=== PATIENT | male | born 2000 | race Caucasian/White ===

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

== ENCOUNTER 2022-03-18 09:41 | Emergency (ER) | payer MEDICAID ==
[~2022-03-18] VITALS: Ht 160 cm; Wt 61.8 kg
--- NOTE | 2022-03-18 11:51 | NUR ---
PT IS COVID NEGATIVE AND EXCOTED TO OF.
--- NOTE | 2022-03-18 11:53 | NUR ---
Pt moved from ER main bed 16 to ER overflow bed 20, ambulated onto unit accompanied by tech.
[2022-03-18 11:56] LABS: BASOPHILS % (AUTO) 0.5 % (0-1); EOSINOPHILS # (AUTO) 0.1 X10'3 (0-0.9); EOSINOPHILS % (AUTO) 1.2 % (0-6); HEMATOCRIT 47.7 % (42.0-52.0); HEMOGLOBIN 16.4 g/dl (14.0-17.9); LYMPHOCYTES # (AUTO) 1.4 X10'3 (1.1-4.8); LYMPHOCYTES % (AUTO) 23.6 % (21-51); MEAN CORPUSCULAR HEMOGLOBIN 30.2 PG (27.0-31.0); MEAN CORPUSCULAR HGB CONC 34.4 g/dL (33.0-36.5); MEAN CORPUSCULAR VOLUME 87.8 FL (78-98); MEAN PLATELET VOLUME 7.5 FL (7.4-10.4); MONOCYTES # (AUTO) 0.9 X10'3 (0-0.9); MONOCYTES % (AUTO) 14.7 % (2-12); NEUTROPHILS # (AUTO) 3.5 X10'3 (1.8-7.7); PLATELET COUNT 316 X10'3 (140-440); RED BLOOD COUNT 5.43 X10'6 (4.70-6.10); RED CELL DISTRIBUTION WIDTH 13.6 % (11.5-14.5); WHITE BLOOD COUNT 5.9 X10'3 (4.5-11.0)
[2022-03-18 12:17] LABS: ALANINE AMINOTRANSFERASE 41 U/L (12-78); ALBUMIN 4.5 G/DL (3.4-5.0); ALBUMIN/GLOBULIN RATIO 1.1 (1.1-1.5); ALKALINE PHOSPHATASE 60 IU/L (46-116); ANION GAP 10 (8-16); ASPARTATE AMINO TRANSFERASE 27 U/L (10-37); BILIRUBIN,TOTAL 0.5 MG/DL (0.1-1.0); BLOOD UREA NITROGEN 14 MG/DL (7-18); BUN/CREATININE RATIO 15.6 (5.4-32.0); CALCIUM 9.6 MG/DL (8.5-10.1); CHLORIDE 97 MMOL/L (99-107); GLUCOSE 88 MG/DL (70-104); SODIUM 136 MMOL/L (135-145); TOTAL CARBON DIOXIDE 29.2 MMOL/L (24-32); TOTAL PROTEIN 8.7 G/DL (6.4-8.2); eGFR > 90 ML/MIN
[2022-03-18 12:18] LABS: ACETAMINOPHEN < 2.0 UG/ML (10-30); ETHANOL < 0.010 GM/DL (0.0-0.010)
[2022-03-18] MEDS ORDERED: CELE-85 PO (12:39)
--- NOTE | 2022-03-18 12:56 | NUR ---
Clean catch UA collected and sent. POM Celecoxib sent to pharmacy.
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
--- NOTE | 2022-03-18 13:15 | NUR ---
sent primary RN on lunch break, pt. sitting up on bed in stable condition, no distress noted.
[2022-03-18 13:20] LABS: URINE AMPHETAMINE SCREEN POSITIVE (Neg); URINE BARBITUATE SCREEN NEGATIVE (Neg); URINE BENZODIAZEPINES SCREEN NEGATIVE (Neg); URINE CANNABINOID SCREEN POSITIVE (Neg); URINE COCAINE SCREEN NEGATIVE (Neg); URINE METHADONE SCREEN NEGATIVE (Neg); URINE OPIATE SCREEN NEGATIVE (Neg); URINE PHENCYCLIDINE SCREEN NEGATIVE (Neg)
--- NOTE | 2022-03-18 13:30 | NUR ---
Patient's packet faxed to [facility].
[2022-03-18 14:29] LABS: CLARITY,URINE SLIGHTLY CLOUDY (Clear); COLOR,URINE YELLOW (Yellow); GLUCOSE, URINE NEGATIVE (Neg); KETONES,URINE NEGATIVE (Neg); LEUKOCYTE ESTERASE ,URINE NEGATIVE (Neg); NITRITES, URINE NEGATIVE (Neg); OCCULT BLOOD,URINE NEGATIVE (Neg); PH,URINE 6.5 (4.8-8.0); PROTEIN,URINE TRACE mg/dl (Neg); UROBILINOGEN,URINE 0.2 E.U/dL (0.2-1.0)
[2022-03-18 14:31] LABS: UA COLLECTION TYPE CLN CATCH MIDSTREAM
[2022-03-18 14:34] LABS: BACTERIA,URINE FEW /HPF (Neg); MUCUS STRANDS MANY /LPF (Neg); RBC,URINE NONE SEEN /HPF (0-2); SQUAMOUS EPITHELIAL CELL,UR FEW /LPF (FEW); WBC,URINE 0-4 /HPF (0-4)
[2022-03-18 14:35] LABS: FINE GRANULAR CAST 0-3 /LPF (NEGATIVE)
--- NOTE | 2022-03-18 14:43 | NUR ---
Pt appears restless, shifting position frequently, holding his head in his hands, hanging his head and upper body off of the bed. Offered to get an order for a prn medication, pt declined. Offered pt reading, writing, or coloring material. Pt declined. Offered TV, pt declined. Addendum: 03/18/22 at 1445 by HEIDY Asked pt if there was anything this RN could do or get to help him relax. Pt shook his head "no." Addendum: 03/18/22 at 1501 by HEIDY Lowered pt's bed and HOB, encouraged him to lie down correctly in the bed with his head on his pillow.
--- NOTE | 2022-03-18 15:56 | NUR ---
Note marino in ED - 03/18/22 at 1607 by HEIDY Asked [facility] workers if they were going to evaluate the patient, they reported he was not on their board. Called [facility] office to ask if they received his packet. [facility] office reported that they only received 4 pages of labs. Packet was faxed to [facility] office [phone]. Refaxed entire packet. [facility] workers are leaving for a meeting but someone will be back later.
--- NOTE | 2022-03-18 15:56 | NUR ---
Asked [facility] workers present in the office if they were going to evaluate the patient, they reported he was not on their board. Called [facility] office to ask if they received his packet. [facility] office reported that they only received 4 pages of labs. Packet had been faxed to [facility] office at 1330. Refaxed entire packet. [facility] workers are leaving for a meeting but someone will be back later.
--- NOTE | 2022-03-18 15:59 | NUR ---
Pt continues to be restless and mildly agitated. Again offered interventions and PRN medication. Pt continues to refuse all interventions. Pt angrily states, "I just need to learn to keep my fucking mouth shut!" Pt did not self present to ER but was brought in by his rn case manager hospice.
--- NOTE | 2022-03-18 16:00 | NUR ---
Observed pt sitting up in bed with his sheet wrapped around his neck. Asked pt to unwrap the sheets from his neck. Pt complied.
--- NOTE | 2022-03-18 16:21 | NUR ---
Breaking Primary RN at this time.Pt gets anxious in btw but now resting in supine position ,no distress noted ,will cont to monitor.
--- NOTE | 2022-03-18 17:16 | NUR ---
Pt has been quietly tearful.
--- NOTE | 2022-03-18 17:16 | NUR ---
Pt is allowing tech to check his vital signs.
--- NOTE | 2022-03-18 17:29 | NUR ---
Pt appears to be responding to internal stimuli, whispering to himself and frequently leaning out of bed looking at the floor or up at fixed spots on the ceiling.
[2022-03-18] MEDS ORDERED: haloperidol lactate 5mg/ml inj ONE (17:49)
[2022-03-18] MEDS ORDERED: LORazepam 2 mg/ml vial ONE (17:50)
--- NOTE | 2022-03-18 18:05 | NUR ---
Pt became agitated when told he would be moving over to a different room in the main ER tonight. He crouched down in the corner and said he wasn't staying here tonight. Pt was unable to cooperate or follow commands due to level of psychosis. Pt would not get up off of the floor, refused to move, refused PO PRNs, made verbal threats to fight staff. Show of support by security and verbal de-escalation unsuccessful. Obtained order for emergent IM meds from Dr Villafuerte. Haldol 5 mg and Ativan 2 mg given IM in right gluteal. Pt did not require restraints. Pt was moved from ER overflow bed 20 to ER main bed 14.
--- NOTE | 2022-03-18 18:32 | NUR ---
ASSUMED CARE OF PT. PT ROOMED IN ER BED 14. PT COMFORTABLY SLEEPING ON PRONE POSITION. EQUAL RISE AND FALL OF CHEST.
--- NOTE | 2022-03-18 19:30 | NUR ---
PT SLEEPING COMFORTABLY. EQUAL RISE AND FALL OF CHEST.
--- NOTE | 2022-03-18 20:33 | NUR ---
PT SLEEPING ON HIS SIDE. EQUAL RISE AND FALL OF CHEST.
--- NOTE | 2022-03-18 21:30 | NUR ---
PT LYING ON PRONE POSITION. EQUAL RISE AND FALL OF CHEST.
--- NOTE | 2022-03-18 22:30 | NUR ---
PT LYING ON HIS SIDE. EQUAL RISE AND FALL OF CHEST.
--- NOTE | 2022-03-18 23:35 | NUR ---
PT LYING IN SUPINE POSITION. EQUAL RISE AND FALL OF CHEST.
--- NOTE | 2022-03-19 00:30 | NUR ---
PT LYING ON SUPINE POSITION. EQUAL RISE AND FALL OF CHEST.
--- NOTE | 2022-03-19 01:30 | NUR ---
PT SLEEPING ON HIS RIGHT SIDE. EQUAL RISE AND FALL OF CHEST.
--- NOTE | 2022-03-19 02:30 | NUR ---
PT SLEEPING COMFORTABLY. EQUAL RISE AND FALL OF CHEST.
--- NOTE | 2022-03-19 03:32 | NUR ---
pt sleeping on his left side. equal rise and fall of chest.
--- NOTE | 2022-03-19 04:45 | NUR ---
PT SLEEPING ON SUPINE POSITION. EQUAL RISE AND FALL OF CHEST.
--- NOTE | 2022-03-19 05:30 | NUR ---
pt sleeping comfortably. equal rise and fall of chest.
[2022-03-19] MEDS ORDERED: celeCOXIB 100mg capsule PO PRN (08:00)
--- NOTE | 2022-03-19 08:30 | NUR ---
Pt. awake and eating breakfast at bedside.
[2022-03-19] MEDS ORDERED: diphenhydrAMINE 25mg capsule PO ONE (09:45)
[2022-03-19] MEDS ORDERED: LORazepam 1 MG tablet PO ONE (09:45)
[2022-03-19] MEDS ORDERED: haloperidol 5mg tablet PO ONE (09:45)
--- NOTE | 2022-03-19 10:00 | NUR ---
Pt. became agitated after being informed he was being placed on a 5150 hold. Pt. throwing himself back and forth on the bed, swearing at staff. Pt. given verbal redirection but states, "I have to go!"RN received order for Haldol 10mg, Ativan 2mg, Benadryl 50mg po. Pt. compliant with medication.
--- NOTE | 2022-03-19 12:00 | NUR ---
Pt. asleep on his right side. Pt. has normal R&R of respirations 18 and even.
--- NOTE | 2022-03-19 12:38 | NUR ---
RN received phone call from Annette at [facility] office. RN informed that pt. has been accepted at [facility] [place], [place]. Accepting physican is Dr. Hull.
[2022-03-19 14:50] VITALS: BP 117/77
== END 2022-03-19 14:40 ==
LOC: ER 09:41
DX: R45.851 Suicidal ideations (principal); Z20.822 Contact with and (suspected) exposure to COVID-19; F12.10 Cannabis abuse, uncomplicated; F15.10 Other stimulant abuse, uncomplicated; Z79.2 Long term (current) use of antibiotics; Z79.899 Other long term (current) drug therapy
CPT/HCPCS: 36415; 80053; 80305; 80320; 80329; 81001; 84443; 85025; 87811; 99285; J1630; J2060; Q0163